=== PATIENT | female | born 1955 | race Caucasian/White ===

== ENCOUNTER 2020-11-07 08:00 | Day surgery (SDC) | payer OTHER ==
[2020-10-31 10:08] LABS: BASOPHILS % (AUTO) 0.6 % (0-1); EOSINOPHILS # (AUTO) 0.2 X10'3 (0-0.9); EOSINOPHILS % (AUTO) 2.9 % (0-6); LYMPHOCYTES # (AUTO) 2.8 X10'3 (1.1-4.8); LYMPHOCYTES % (AUTO) 39.8 % (21-51); MEAN CORPUSCULAR HEMOGLOBIN 30.8 PG (27.0-31.0); MEAN CORPUSCULAR HGB CONC 34.1 g/dL (33.0-36.5); MEAN CORPUSCULAR VOLUME 90.2 FL (78-98); MEAN PLATELET VOLUME 7.7 FL (7.4-10.4); MONOCYTES # (AUTO) 0.5 X10'3 (0-0.9); MONOCYTES % (AUTO) 7.6 % (2-12); NEUTROPHILS # (AUTO) 3.5 X10'3 (1.8-7.7); NEUTROPHILS % (AUTO) 49.1 % (42-75); PRE OP HEMATOCRIT 36.6 % (35.0-45.0); PRE OP HEMOGLOBIN 12.5 g/dL (12.0-16.0); PRE OP PLATELET COUNT 353 X10'3 (140-440); RED BLOOD COUNT 4.06 X10'6 (4.20-5.60); RED CELL DISTRIBUTION WIDTH 13.4 % (11.5-14.5)
[2020-10-31 10:23] LABS: PRE OP PROTIME 10.5 SECONDS (9.0-12.0)
[2020-10-31 10:29] LABS: ALBUMIN 3.9 G/DL (3.4-5.0); ALBUMIN/GLOBULIN RATIO 1.1 (1.1-1.5); ALKALINE PHOSPHATASE 80 IU/L (46-116); BLOOD UREA NITROGEN 17 MG/DL (7-18); BUN/CREATININE RATIO 20.2 (6.6-38.0); CALCIUM 9.1 MG/DL (8.5-10.1); CHLORIDE 98 MMOL/L (99-107); CREATININE 0.84 MG/DL (0.40-0.90); PRE OP ALT 28 U/L (30-65); PRE OP ANION GAP 10 (8-16); PRE OP AST 20 U/L (10-37); PRE OP BILIRUB, TOTAL 0.4 MG/DL (0.0-1.0); PRE OP GLUCOSE 92 MG/DL (70-104); PRE OP POTASSIUM 3.9 MMOL/L (3.4-5.1); PRE OP SODIUM 136 MMOL/L (135-145); TOTAL CARBON DIOXIDE 27.6 MMOL/L (24-32); TOTAL PROTEIN 7.5 G/DL (6.4-8.2); eGFR 68 ML/MIN
[2020-11-07] VITALS (22 sets, daily range): BP systolic 125–150; BP diastolic 63–77
[~2020-11-07] VITALS: Ht 157.5 cm; Wt 87.3 kg
[~2020-11-07 08:00] MED LIST: APIX5TAB3 PO; CHOL400T57 PO; ESTR10TA VG; FLEC100T2 PO; HYDR25TA5 PO; LIDOcaine 1% W/epiNEPHrine 1:100,000 20ml vial ONE; LISI10TA27 PO; OMEP40CA21 PO; ROSU40TA PO; cefTAZidime 1gm inj ONE; cocaine 4% topical solution 4ml bottle ONE; diazepam 5mg tablet PO PRN; famotidine 20mg tablet PO ONE; mupirocin 2% ointment 22GM ONE; oxymetazoline 15 ML nasal spray NS ONE; oxymetazoline 15 ML nasal spray NS PRN; ringers solution, lacted 1,000 ML IV SCH
[2020-11-07] MEDS ORDERED: ringers solution, lacted 1,000 ML IV SCH (10:35)
[2020-11-07] MEDS ORDERED: fentaNYL/PF 50MCG/1 ML 2ML syringe IV PRN ×2 (10:35)
[2020-11-07] MEDS ORDERED: ondansetron/PF 4mg/2ml inj IV PRN (10:35)
[2020-11-07] MEDS ORDERED: hydrALAZINE 20mg/ml inj. IV PRN (10:35)
[2020-11-07] MEDS ORDERED: morphine 4 MG/ML inj SYRINge IV PRN (10:35)
[2020-11-07] MEDS ORDERED: labetalol 20mg/4ml (5mg/ml) syringe IV PRN (10:35)
[2020-11-07] MEDS ORDERED: morphine 2 MG/ML inj. syringe IV PRN (10:35)
[2020-11-07] MEDS ORDERED: midazolam 1 mg/ML 2ml injection ONE (10:41)
[2020-11-07] MEDS ORDERED: fentaNYL/PF 50MCG/1 ML 2ML syringe ONE (10:41)
[2020-11-07] MEDS ORDERED: ondansetron/PF 4mg/2ml inj ONE (10:42)
[2020-11-07] MEDS ORDERED: propofol 10mg/ml 20ml vial IV ONE (10:47)
[2020-11-07] MEDS ORDERED: desflurane 240ml liquid inh. IH ONE (10:47)
[2020-11-07] MEDS ORDERED: sevoflurane 250ml liquid IH ONE (10:47)
[2020-11-07] MEDS ORDERED: dexamethasone sod phosphate 10mg/ml inj ONE (10:47)
[2020-11-07] MEDS ORDERED: LIDOCAINE 1%/EPI 1:100,000 inj. 10 ML multi-dose vial ONE (11:01)
[2020-11-07] MEDS ORDERED: hydrALAZINE 20mg/ml inj. IV ONE (11:07)
[2020-11-07] MEDS ORDERED: methylPREDNISolone acetate 80mg/ml inj**IM only ONE (11:53)
--- NOTE | 2020-11-07 11:59 | NUR ---
Received from OR via [facility], accompanied by Anesthesiologist DR WILEY and report given by Anesthesiolgist. PT DROWSY, DENIES PAIN. BILATERAL COTTONNOIDS IN PLACE, SMALL AMT OF BLOODY DRAINAGE, SKY TAVERA. Addendum: 11/07/20 at 1304 by Arielle Crews RN Amended: Links added.
[2020-11-07] MEDS ORDERED: acetaminophen 1,000mg/100ml IV 100 ML IV ONE (13:55)
[2020-11-07] MEDS ORDERED: salt irrigation nasal spray 45 ML SPRAY NS PRN (14:15)
[2020-11-07] MEDS ORDERED: lisinopril 10 MG tablet PO ONE (14:25)
--- NOTE | 2020-11-07 14:35 | NUR ---
PT CONTINUES W/SLOW BLEDUYEN, CALLED DR ALEJANDRE, RECEIVED ORDERS TO GIVE 10 MG LISINOPRIL AND PULL COTTONNOIDS 20 MINUTES LATER. Addendum: 11/07/20 at 1436 by Arielle Crews RN Amended: Links added.
--- NOTE | 2020-11-07 15:39 | NUR ---
D/CD COTTONNOIDS, SCANT TO MINIMAL BLEEDING AFTER. D/C INSTRUCTIONS GIVEN AND GONE OVER W/PT WHO VERBALIZED UNDERSTANDING. PT UP AND STABLE ON FEET. PT D/CD TO HOME VIA W/C TO PRIVATE VEHICLE W/O INCIDENT. Addendum: 11/07/20 at 1554 by Arielle Crews RN Amended: Links added.
[2020-11-07] MEDS ORDERED: mupirocin 2% nasal ointment 1gm UD NS SCH (21:00)
== END 2020-11-07 15:39 | disposition home or self-care (01) ==
LOC: PAS 08:00
PROVIDERS: ATTEND Otolaryngology
DX: J34.2 Deviated nasal septum (principal); J34.3 Hypertrophy of nasal turbinates; I10 Essential (primary) hypertension; G47.30 Sleep apnea, unspecified; I48.0 Paroxysmal atrial fibrillation; J44.9 Chronic obstructive pulmonary disease, unspecified; K21.9 Gastro-esophageal reflux disease without esophagitis; M19.90 Unspecified osteoarthritis, unspecified site; E66.9 Obesity, unspecified; Z68.35 Body mass index [BMI] 35.0-35.9, adult; Z79.899 Other long term (current) drug therapy; Z79.01 Long term (current) use of anticoagulants; Z20.822 Contact with and (suspected) exposure to COVID-19; Z90.49 Acquired absence of other specified parts of digestive tract; Z90.710 Acquired absence of both cervix and uterus; Z98.890 Other specified postprocedural states; Z90.89 Acquired absence of other organs; Z87.891 Personal history of nicotine dependence; Z72.89 Other problems related to lifestyle; Z88.7 Allergy status to serum and vaccine
CPT/HCPCS: 30140; 30520; 36415; 80053; 82948; 85025; 85576; 85610; 85730; 87635; A6402; C9250; C9803; J0131; J0360; J0713; J1040; J2250; J2405; J3010; J7120; U0003; U0005; Z7506; Z7508; Z7512; A4618; A7000; J1100; J2704

== ENCOUNTER 2024-09-23 12:33 | Outpatient (CLI) | payer MEDICARE ==
[~2024-09-23 12:33] MED LIST changes: -APIX5TAB3 PO; +ASPI-611 PO; -CHOL400T57 PO; -ESTR10TA VG; -FLEC100T2 PO; -LIDOcaine 1% W/epiNEPHrine 1:100,000 20ml vial ONE; -ROSU40TA PO; +SIMV-45 PO; -cefTAZidime 1gm inj ONE; -cocaine 4% topical solution 4ml bottle ONE; -diazepam 5mg tablet PO PRN; -famotidine 20mg tablet PO ONE; -mupirocin 2% ointment 22GM ONE; -oxymetazoline 15 ML nasal spray NS ONE; -oxymetazoline 15 ML nasal spray NS PRN; -ringers solution, lacted 1,000 ML IV SCH
[2024-09-23] MEDS ORDERED: iohexol 300mg/ml 100ml inj. ONE (13:29)
--- NOTE | 2024-09-23 19:16 | RADIOLOGY REPORT ---
EXAM: CT CT LOWER EXTREMITY W/ IV CONTRAST INDICATION: PAIN IN L FOOT TECHNIQUE: Axial images of left lower extremity have been obtained along with coronal and sagittal re formatted images. All CT scans at this facility use dose modulation, iterative reconstruction, and/or weight based dosing when appropriate to reduce radiation dose to as low as reasonably achievable. COMPARISON: None FINDINGS: BONES: No CT evidence of an acute fracture or aggressive osseous lesion. Severe degenerative change w ith joint space loss of the 2nd tarsometatarsal articulation with dorsal spurring. Trace Achilles ins ertional enthesophyte. Small plantar calcaneal spur. Trace soft tissue calcification along the media l aspect of the 1st distal interphalangeal joint, which may be degenerative versus sequelae of prior injury. Trace osseous spurring along the inferior medial malleolus, likely related to prior deltoid l igamentous avulsive injury. Question dorsal spurring versus less likely osseous erosive appearance al chana the dorsal aspect of the 2nd and 3rd metatarsal bases. Clinical correlation required. MUSCLES: No abnormal attenuation. JOINT SPACES: No joint effusion. TENDONS/LIGAMENTS: Intact. OTHER: None. IMPRESSION: 1. 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 2. Question dorsal spurring versus less likely osseous erosive appearance along the dorsal aspect of the 2nd and 3rd metatarsal bases. Clinical correlation required.
== END 2024-09-23 23:59 | disposition home or self-care (01) ==
LOC: 64 CT 12:33
PROVIDERS: ATTEND Nurse Practitioner Family
DX: M19.072 Primary osteoarthritis, left ankle and foot (principal); C50.512 Malignant neoplasm of lower-outer quadrant of left female breast; Z03.89 Encounter for observation for other suspected diseases and conditions ruled out; M25.572 Pain in left ankle and joints of left foot; M79.672 Pain in left foot; M77.32 Calcaneal spur, left foot
CPT/HCPCS: 73701; Q9967